=== PATIENT | male | born 1990 | race Two or more races ===

== ENCOUNTER 2020-09-05 12:33 | Emergency (ER) | payer OTHER ==
[2020-09-05 12:44] VITALS: BP 131/85; PULSE 97; RESP 20; TEMP 98.8
--- NOTE | 2020-09-05 13:15 | ED ---
Fall HPI - General Chief Complaint: Fall Stated Complaint: fall, low back pain Time Seen by Provider: 09/05/20 12:50 Source: patient, RN notes reviewed Mode of arrival: ambulatory Limitations: no limitations - History of Present Illness Initial Comments: This a 30-year-old male presents emergency Department with chief complaint of back pain. 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 Patient states he twisted and fell to the ground. Patient went of low back pain. He states he put some heat and ice and took Cipro for yesterday which initially helped but states the pain worsened today he became concerned. He denies any bowel, bladder incontinence or retention. Denies any saddle anesthesias. Patient states she has no lower shunted paresthesias. He has increased pain with range of motion. No abdominal pain no head neck injury. - Related Data Previous Rx's Medication Instructions Recorded Cyclobenzaprine [Flexeril] 10 mg PO TID PRN #15 tab 09/05/20 Allergies Allergy/AdvReac Type Severity Reaction Status Date / Time Penicillins Allergy Anaphylaxis Verified 09/05/20 13:18 Review of Systems ROS Statement: Those systems with pertinent positive or pertinent negative responses have been documented in the HPI. ROS Other: All systems not noted in ROS Statement are negative. Past Medical History Additional Past Medical History / Comment(s): left clavicle fracture History of Any Multi-Drug Resistant Organisms: None Reported Past Surgical History: Appendectomy Past Psychological History: No Psychological Hx Reported Smoking Status: Never smoker Past Alcohol Use History: None Reported Past Drug Use History: Marijuana General Exam Limitations: no limitations General appearance: alert, in no apparent distress Head exam: Present: atraumatic, normocephalic, normal inspection Eye exam: Present: normal appearance, PERRL, EOMI. Absent: scleral icterus, conjunctival injection, periorbital swelling ENT exam: Present: normal exam, mucous membranes moist Neck exam: Present: normal inspection. Absent: tenderness, meningismus, lymphadenopathy Respiratory exam: Present: normal lung sounds bilaterally. Absent: respiratory distress, wheezes, rales, rhonchi, stridor, chest wall tenderness, decreased breath sounds Cardiovascular Exam: Present: regular rate, normal rhythm, normal heart sounds. Absent: systolic murmur, diastolic murmur, rubs, gallop, clicks GI/Abdominal exam: Present: soft, normal bowel sounds. Absent: distended, tenderness, guarding, rebound, rigid Extremities exam: Present: other (Lower extremity strength equal bilaterally neurovascular intact equal color equal warmth) Back exam: Present: full ROM, tenderness, muscle spasm, paraspinal tenderness. Absent: vertebral tenderness Neurological exam: Present: alert, oriented X3, CN II-XII intact, reflexes normal. Absent: motor sensory deficit Skin exam: Present: warm, dry, intact, normal color. Absent: rash Course Vital Signs 09/05/20 12:39 Temperature 98.8 F Pulse Rate 97 Respiratory 20 Rate Blood Pressure 131/85 O2 Sat by Pulse 99 Oximetry Medical Decision Making - Medical Decision Making X-ray does not show any evidence of acute fracture. Patient states has been terminal changes. Patient is neurologically intact with no red flag symptoms. Patient discharged in stable condition. Disposition Clinical Impression: Fall, Low back pain Disposition: HOME SELF-CARE Condition: Stable Instructions (If sedation given, give patient instructions): Back Pain (ED) Additional Instructions: Please return to the Emergency Department if symptoms worsen or any other concerns. Prescriptions: Cyclobenzaprine [Flexeril] 10 mg PO TID PRN #15 tab PRN Reason: Muscle Spasm Is patient prescribed a controlled substance at d/c from ED?: No Referrals: None,Stated [Primary Care Provider] - 1-2 days Time of Disposition: 14:18
--- NOTE | 2020-09-05 13:48 | XR ---
EXAMINATION TYPE: XR lumbosacral spine min 4V DATE OF EXAM: 09/05/2020 Comparison: None Clinical History: 30-year-old male fall, pain Findings: There is a transitional lumbosacral segment is noted as a sacralized L5. There is a left L5 hemisacra lization noted. Unable to well visualize the L4 pars interarticularis regions. Vertebral body heights are preserved and alignment is maintained. Suggestion of mild facet arthropathy lower lumbar spine. 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 This can contribute to premature deg enerative disc disease above at L4-L5 some patients. Unable to adequately visualize the bilateral L4 pars regions. No vertebral compression collapse or malalignment.
[2020-09-05] MEDS ORDERED: ACET/COD 300 MG/30 MG STARTER PACK 6 TAB BTL PO STA (14:18)
== END 2020-09-05 14:35 | disposition home or self-care (01) ==
LOC: EC 12:33
DX: M54.5 Low back pain (principal); Z88.0 Allergy status to penicillin; W00.0XXA Fall on same level due to ice and snow, initial encounter; Y92.009 Unspecified place in unspecified non-institutional (private) residence as the place of occurrence of the external cause
CPT/HCPCS: 72110; 99283

== ENCOUNTER 2020-09-06 06:57 | Emergency (ER) | payer OTHER ==
[2020-09-06 07:07] VITALS: BP 140/87; PULSE 73; RESP 20; TEMP 98.4
[2020-09-06] MEDS ORDERED: ORPHENADRINE 30 MG/ML 2 ML VIAL IM STA (07:36)
[2020-09-06] MEDS ORDERED: KETOROLAC 15 MG/ML 1 ML VIAL IM STA (07:36)
--- NOTE | 2020-09-06 07:43 | ED ---
General Adult HPI - General Chief complaint: Back Pain/Injury Stated complaint: Back pain Source: patient, family Mode of arrival: wheelchair Limitations: no limitations - History of Present Illness Initial comments: 30-year-old male presents to the emergency room for a chief complaint of back pain. Patient states that 2 days ago he slipped on ice and fell on his lower back. She has been painful since that time. Patient was seen here yesterday and had an x-ray that was limited however did not show any fractures. Patient states that he was prescribed muscle relaxers but he did not pick them up. This morning when he woke up his back was more stiff so he decided to come back in. Patient denies any bladder or bowel changes, saddle anesthesia, weakness of the lower extremities. He denies fevers. Denies radiating pain. Patient states pain worsens when he has to go from sitting to standing or other movements. States it feels better when he sits in a certain position.Patient has no other complaints at this time including shortness of breath, chest pain, abdominal pain, nausea or vomiting, headache, or visual changes. - Related Data Previous Rx's Medication Instructions Recorded Cyclobenzaprine [Flexeril] 10 mg PO TID PRN #15 tab 09/05/20 Allergies Allergy/AdvReac Type Severity Reaction Status Date / Time Penicillins Allergy Anaphylaxis Verified 09/06/20 07:07 Review of Systems ROS Statement: Those systems with pertinent positive or pertinent negative responses have been documented in the HPI. ROS Other: All systems not noted in ROS Statement are negative. Past Medical History Additional Past Medical History / Comment(s): left clavicle fracture History of Any Multi-Drug Resistant Organisms: None Reported Past Surgical History: Appendectomy Past Psychological History: No Psychological Hx Reported Smoking Status: Never smoker Past Alcohol Use History: None Reported Past Drug Use History: Marijuana General Exam Limitations: no limitations General appearance: alert Head exam: Present: atraumatic Eye exam: Present: normal appearance, PERRL, EOMI. Absent: scleral icterus, conjunctival injection ENT exam: Present: normal exam, mucous membranes moist Neck exam: Present: normal inspection, full ROM. Absent: tenderness Respiratory exam: Present: normal lung sounds bilaterally. Absent: respiratory distress, wheezes Cardiovascular Exam: Present: regular rate, normal rhythm, normal heart sounds GI/Abdominal exam: Present: soft, normal bowel sounds. Absent: distended, tenderness, guarding, rebound, rigid Back exam: Present: paraspinal tenderness (Generalized lumbar paraspinal tenderness.), vertebral tenderness (Generalized lumbar tenderness. No thoracic spine tenderness.). Absent: CVA tenderness (R), CVA tenderness (L) Course Vital Signs 09/06/20 07:03 Temperature 98.4 F Pulse Rate 73 Respiratory 20 Rate Blood Pressure 140/87 O2 Sat by Pulse 98 Oximetry Medical Decision Making - Medical Decision Making Vitals are stable. No neurologic deficits in the lower extremities. No red flag signs. Patient did have an x-ray that was limited yesterday showing no acute fracture as pain is posttraumatic. Today his pain is worse and I will obtain a CT. CT shows mild disc bulging with mild anterior thecal sac flattening as discussed above. No acute osseous abnormality. Patient was given Toradol and Norflex. He will oyster picker his prescription of muscle relaxers which was written yesterday that she has failed to obtain. Patient will continue Motrin and Tylenol as well as muscle relaxers. He will follow up with primary care and orthopedics. He will return for any worsening symptoms. - Lab Data Lab Results 09/06/20 Range/Units 07:58 Urine Color Yellow Urine Appearance Clear (Clear) Urine pH 5.0 (5.0-8.0) Ur Specific Orange 1.017 (1.001-1.035) Urine Protein Negative (Negative) Urine Glucose (UA) Negative (Negative) Urine Ketones Negative (Negative) Urine Blood Negative (Negative) Urine Nitrite Negative (Negative) Urine Bilirubin Negative (Negative) Urine Urobilinogen <2.0 (<2.0) mg/dL Ur Leukocyte Esterase Negative (Negative) Disposition Clinical Impression: Back pain, Fall, Bulging disc Disposition: HOME SELF-CARE Instructions (If sedation given, give patient instructions): Acute Low Back Pain (ED) Additional Instructions: Please take Motrin and Tylenol for pain. Please take muscle relaxer that was prescribed yesterday. Follow-up with primary care and orthopedics. Return to the emergency room for any worsening symptoms. Is patient prescribed a controlled substance at d/c from ED?: No Referrals: Brandan Noel DO [Doctor of Osteopathic Medicine] - 1-2 days Time of Disposition: 08:30
[2020-09-06 08:13] LABS: Appearance,Urine Clear (Clear); Bilirubin,Urine Negative (Negative); Blood,Urine Negative (Negative); Color,Urine Yellow; Glucose,Urine (UA) Negative (Negative); Ketones,Urine Negative (Negative); Leukocyte Esterase,Urine Negative (Negative); Nitrite,Urine Negative (Negative); Protein,Urine Negative (Negative); Specific Gravity,Urine 1.017 (1.001-1.035); Urobilinogen,Urine <2.0 mg/dL (<2.0)
--- NOTE | 2020-09-06 08:26 | CT ---
EXAMINATION TYPE: CT lumbar spine wo con DATE OF EXAM: 09/06/2020 COMPARISON: X-ray 09/05/2020 HISTORY: low back pain since shoveling yesterday CT DLP: 1499.6 mGycm CONTRAST: None TECHNIQUE: CT of the lumbar spine is performed on a spiral scan at 3 mm thick sections. Reconstructed images are performed in the coronal and sagittal planes. FINDINGS: Vertebral alignment appears normal. There is narrowing of the L5-S1 disc height. Disc heights are oth erwise preserved. Mild disc bulging may be present L1-2, L2-3 with anterior thecal sac flattening. Di sc bulging at L3-4 has mild anterior thecal sac flattening without stenosis. Disc bulging at L4-5 has mild anterior thecal sac compression. No AP spinal canal stenosis is present. Neural foramen appear patent IMPRESSION: 1. Mild disc bulging with mild anterior thecal sac flattening on discussed above. This may be greate st at the L4-5 level. 2. No acute osseous abnormality.
== END 2020-09-06 08:42 | disposition home or self-care (01) ==
LOC: EC 06:57
DX: M51.36 Other intervertebral disc degeneration, lumbar region (principal); Z88.0 Allergy status to penicillin; W00.0XXA Fall on same level due to ice and snow, initial encounter
CPT/HCPCS: 72131; 81003; 96372; 99284